=== PATIENT | female | born 1985 | race Caucasian/White ===

== ENCOUNTER 2016-09-03 05:19 | Emergency (ER) | payer OTHER ==
[~2016-09-03] VITALS: Ht 157.5 cm; Wt 129.3 kg
[~2016-09-03 05:19] MED LIST: AMOXICILLIN500 MG PO; DEPO-PROVER150 MG/ML IM; FLEXERIL10 MG PO; LORTAB 5-325 M1 EACH PO; MOTRIN600 MG PO; Macrobid PO; NAPROSYN500 MG PO; NO HOME MEDS; SERTRALINE HCL50 MG PO; TYLENOL EXTRA500 MG PO; Vicodin,Norco 5/325 PO
[2016-09-03 06:01] LABS: HEMATOCRIT 39.3 % (36.0-46.0); MCH 24.2 PG (29.0-34.0); MCHC 30.5 G/DL (30.0-36.0); MCV 79.2 FL (83-99); MEAN PLAT.VOLUME 10.6 uM^3 (9.5-12.4); PLATELET COUNT 281 K/uL (156-360); RBC DIS.WIDTH-CV 14.1 % (11.8-14.6); RBC DIS.WIDTH-SD 40.6 % (39-53); RED BLOOD COUNT 4.96 M/uL (3.80-5.20); WHITE BLOOD COUNT 9.6 K/uL (4.1-10.2)
[2016-09-03 06:11] LABS: CHLORIDE 105 mEq/L (99-109); D-DIMER ELISA 0.34 mg/L FEU (< 0.57); POTASSIUM 3.7 mEq/L (3.7-5.4); SODIUM 138 mEq/L (136-147)
[2016-09-03 06:13] LABS: GLUCOSE 116 mg/dL (70-99)
[2016-09-03 06:14] LABS: ANION GAP 8 MEQ/L (2-14)
[2016-09-03 06:17] LABS: GFR ESTIMATE (CALCULATED) > 59 mL/min/
[2016-09-03 06:18] LABS: UREA NITROGEN (BUN) 12 mg/dL (9-23)
[2016-09-03 06:24] LABS: TROP-I INTERPRETATION NEGATIVE; TROPONIN-I < 0.01 ng/mL (0.0-0.30)
[2016-09-03 06:36] LABS: TOTAL BILIRUBIN 0.5 mg/dL (0.0-1.0)
[2016-09-03 06:37] LABS: ALKALINE PHOSPHATASE 76 IU/L (3-129)
[2016-09-03 06:40] LABS: DIRECT BILIRUBIN 0.2 mg/dL (0.0-0.3)
[2016-09-03 06:41] LABS: LIPASE 19 U/L (1.0-51.0)
[2016-09-03] MEDS ORDERED: PRILOSEC20 MG PO (07:09)
[2016-09-03] MEDS ORDERED: ZOFRAN ODT4 MG PO (07:09)
[2016-09-03 07:53] VITALS: BP 115/82
[2016-09-03] MEDS ORDERED: NORCO 5/3251 TABLET PO (20:45)
[2016-09-03] MEDS ORDERED: CARAFATE1 GM PO (20:45)
== END 2016-09-03 07:54 | disposition home or self-care (01) ==
LOC: EME 05:19
PROVIDERS: Emergency Medicine
DX: R10.13 Epigastric pain (principal); F17.200 Nicotine dependence, unspecified, uncomplicated
CPT/HCPCS: 71020; 76705; 80048; 80076; 83690; 84484; 85027; 85379; 93005; 99281; 99283

== ENCOUNTER 2016-09-03 16:04 | Emergency (ER) | payer OTHER ==
[~2016-09-03] VITALS: Ht 157.5 cm; Wt 126.0 kg
[~2016-09-03 16:04] MED LIST changes: +PRILOSEC20 MG PO; +ZOFRAN ODT4 MG PO
[2016-09-03 16:28] LABS: HEMATOCRIT 40.8 % (36.0-46.0); MCH 24.9 PG (29.0-34.0); MCHC 30.9 G/DL (30.0-36.0); MCV 80.5 FL (83-99); MEAN PLAT.VOLUME 10.8 uM^3 (9.5-12.4); PLATELET COUNT 298 K/uL (156-360); RBC DIS.WIDTH-CV 14.1 % (11.8-14.6); RBC DIS.WIDTH-SD 41.1 % (39-53); RED BLOOD COUNT 5.07 M/uL (3.80-5.20); WHITE BLOOD COUNT 10.5 K/uL (4.1-10.2)
[2016-09-03 16:47] LABS: CHLORIDE 106 mEq/L (99-109); POTASSIUM 4.3 mEq/L (3.7-5.4); SODIUM 140 mEq/L (136-147)
[2016-09-03 16:50] LABS: GLUCOSE 106 mg/dL (70-99)
[2016-09-03 16:51] LABS: ANION GAP 7 MEQ/L (2-14)
[2016-09-03 16:52] LABS: TOTAL BILIRUBIN 0.4 mg/dL (0.0-1.0)
[2016-09-03 16:53] LABS: ALKALINE PHOSPHATASE 82 IU/L (3-129); GFR ESTIMATE (CALCULATED) > 59 mL/min/
[2016-09-03 16:55] LABS: UREA NITROGEN (BUN) 11 mg/dL (9-23)
[2016-09-03 16:57] LABS: LIPASE 26 U/L (1.0-51.0)
[2016-09-03 17:59] LABS: ADD MIUA? YES; BILIRUBIN NEGATIVE; BLOOD NEGATIVE; COLOR YELLOW ((YELLOW)); GLUCOSE (STRIP) NEGATIVE; KETONES NEGATIVE; LEUKOCYTES NEGATIVE; NITRITE NEGATIVE; PROTEIN (STRIP) NEGATIVE; SPECIFIC GRAVITY 1.019 (1.000-1.030); UROBILINOGEN 0.2 MG/DL (0.2-1.0)
[2016-09-03 18:12] LABS: BACTERIA RARE /HPF; CALCIUM OXALATE CRYSTALS 1+ /HPF; EPITHELIAL CELLS 1+ /HPF; MUCUS TRACE /LPF; RED BLOOD CELLS 0-5 /HPF (0-5); UCUL ADDED? NO; WHITE BLOOD CELLS 0-5 /HPF (0-5)
[2016-09-03] MEDS ORDERED: CARAFATE1 GM PO (20:45)
[2016-09-03] MEDS ORDERED: NORCO 5/3251 TABLET PO (20:45)
[2016-09-03 21:41] VITALS: BP 153/93
== END 2016-09-03 21:41 | disposition home or self-care (01) ==
LOC: EME 16:04
PROVIDERS: Physician Assistant
DX: R10.13 Epigastric pain (principal); F17.200 Nicotine dependence, unspecified, uncomplicated
CPT/HCPCS: 74176; 80053; 81003; 83690; 85027; 99281; 99283